=== PATIENT | male | born 1965 | race Hispanic/Latino ===

== ENCOUNTER 2024-07-22 10:45 | Day surgery (SDC) | payer BC ==
[2024-07-20 12:28] VITALS: BMI 31.0
[2024-07-22] MEDS ORDERED: Ketorolac Tromethamine 30 MG (1 mL) VIAL ONE (10:54)
[2024-07-22] MEDS ORDERED: Acetaminophen 500 MG TAB ONE (10:55)
[2024-07-22] MEDS ORDERED: PROPOFOL 20 ML ONE (12:51)
[2024-07-22] MEDS ORDERED: Lidocaine 1% PF 5 ML VIAL ONE (12:53)
[2024-07-22] MEDS ORDERED: Bupivacaine/Epinephrine 0.25% 30 ML VIAL ONE (13:01)
[2024-07-22] MEDS ORDERED: CEFAZOLIN 2 GM VIAL ONE (13:13)
[2024-07-22] MEDS ORDERED: fentaNYL 50 mcg/mL 1 mL Vial ONE (13:19)
[2024-07-22] MEDS ORDERED: Dexamethasone 20 MG/5 ML VIAL ONE (13:29)
[2024-07-22] MEDS ORDERED: Ondansetron PF 4 MG/2 ML Vial ONE (13:29)
[2024-07-22] MEDS ORDERED: HYDROcodone/Acetaminophen 5/325 mg Tablet ONE (14:50)
== END 2024-07-22 15:48 | disposition home or self-care (01) ==
LOC: CSHSDC 10:45
PROVIDERS: ATTEND Specialist
PROC: 0D9R0ZZ Drainage of Anal Sphincter, Open Approach (ICD-10-PCS; principal; 2024-07-22)
DX: K60.2 Anal fissure, unspecified (principal); H40.9 Unspecified glaucoma; E78.5 Hyperlipidemia, unspecified; I10 Essential (primary) hypertension; Z98.890 Other specified postprocedural states; Z79.899 Other long term (current) drug therapy; Z88.6 Allergy status to analgesic agent
CPT/HCPCS: J1100; J1885; J2405; J2704; J3010